=== PATIENT | male | born 1975 ===

== ENCOUNTER 2017-04-14 18:09 | Emergency (ER) | payer SELFPAY ==
[2017-04-14 18:16] VITALS: RESP 18
[2017-04-14 19:03] LABS: RBC URINE < 1 /hpf (0-3); URINE BILIRUBIN NEGATIVE (NEGATIVE); URINE BLOOD NEGATIVE (NEGATIVE); URINE COLOR Straw (YELLOW); URINE GLUCOSE (UA) 3+ mg/dL (Normal); URINE KETONE 1+ mg/dL (NEGATIVE); URINE LEUKOCYTE ESTERASE NEG Leu/uL (Negative); URINE PROTEIN NEGATIVE (NEGATIVE); URINE UROBILINOGEN NORMAL mg/dL (0.2-1.0); WBC URINE 1 /hpf (0-5)
[2017-04-14 19:05] LABS: CHLORIDE 98 mmol/L (98-107); POTASSIUM 3.9 mmol/L (3.6-5.2); SODIUM 136 mmol/L (132-148)
[2017-04-14] MEDS ORDERED: Sodium Chloride 0.9% 1,000 ML IV ONE ×2 (19:06→20:07)
--- NOTE | 2017-04-14 19:06 | C.PDOC ---
History Of Present Illness 41 yr old male presents to the ER with complaints of polyuria, polydipsia and polyphagia worsening for the past few weeks. Patient has family history of diabetes (mother and brother). Patient denies fever, chills, chest pain, SOB, nausea, vomiting, abdominal pain, weakness or numbness. Time Seen by Provider: 04/14/17 19:06 Chief Complaint (Nursing): Dizziness/Lightheaded History Per: Patient History/Exam Limitations: no limitations Onset/Duration Of Symptoms: Worse Since (past few weeks) Past Medical History Reviewed: Historical Data, Nursing Documentation, Vital Signs Vital Signs: Last Vital Signs Temp 98.4 F 04/14/17 18:14 Pulse 74 04/14/17 21:07 Resp 18 04/14/17 21:07 BP 106/61 04/14/17 21:07 Pulse Ox 100 04/14/17 21:07 - Medical History PMH: Diabetes Family History: States: Diabetes - Social History Hx Alcohol Use: Yes Hx Substance Use: No - Immunization History Hx Tetanus Toxoid Vaccination: No Hx Influenza Vaccination: No Hx Pneumococcal Vaccination: No Review Of Systems Except As Marked, All Systems Reviewed And Found Negative. Constitutional: Positive for: Other ((+) Polyuria. Polydipsia. Polyphagia.). Negative for: Fever, Chills Cardiovascular: Negative for: Chest Pain Respiratory: Negative for: Shortness of Breath Gastrointestinal: Negative for: Nausea, Vomiting, Abdominal Pain Neurological: Negative for: Weakness, Numbness Physical Exam - Physical Exam Appears: Non-toxic, No Acute Distress Skin: Warm, Dry, No Rash Head: Atraumatic, Normacephalic Oral Mucosa: Dry Chest: Symmetrical, No Tenderness Cardiovascular: No Murmur Respiratory: No Rales, No Rhonchi, No Wheezing Gastrointestinal/Abdominal: Soft, No Tenderness, No Guarding, No Rebound Extremity: Capillary Refill (<2), No Swelling Neurological/Psych: Oriented x3, Normal Speech Gait: Steady ED Course And Treatment - Laboratory Results Result Diagrams: 04/14/17 18:53 04/14/17 18:53 O2 Sat by Pulse Oximetry: 97 (RA ) Pulse Ox Interpretation: Normal Reevaluation Time: 21:41 Reassessment Condition: Improved Medical Decision Making Medical Decision Making: PLAN: * CXR * VBG * Ketone Serum * CBC * CMP * Sodium Chloride IV Upon provider reevaluation patient is feeling better, is medically stable, and requires no further treatment in the ED at this time. Patient will be discharged home with Rx for metformin . Counseling was provided and all questions were answered regarding diagnosis and need for follow up with the referred clinic. There is agreement to discharge plan. Return if symptoms persist or worsen. Disposition Counseled Patient/Family Regarding: Studies Performed, Diagnosis, Need For Followup, Rx Given - Disposition Referrals: [facility] [Outside] [facility] [Outside] Disposition: HOME/ ROUTINE Disposition Time: 19:06 Condition: FAIR Additional Instructions: Please return if symptoms recur. Do go to the clinic tomorrow 04/15/17 Prescriptions: metFORMIN [glucOPHAGE] 500 mg PO BID #30 tab Instructions: Diabetic Hyperglycemia (ED), Diabetes Mellitus Type 2 in Adults ( DC) Forms: [employer] ([place]an) - Clinical Impression Clinical Impression: New onset type 2 diabetes mellitus, Hyperglycemia - Scribe Statement The provider has reviewed the documentation as recorded by the Eder Metz Provider Attestation: All medical record entries made by the Eder were at my direction and personally dictated by me. I have reviewed the chart and agree that the record accurately reflects my personal performance of the history, physical exam, medical decision making, and the department course for this patient. I have also personally directed, reviewed, and agree with the discharge instructions and disposition.
[2017-04-14 19:07] LABS: CARBON DIOXIDE 24 mmol/L (22-30); GFR AFRICAN-AMERICAN > 60
[2017-04-14 19:08] LABS: ALB/GLOB RATIO 1.1 (1.0-2.1); ALKALINE PHOSPHATASE 163 U/L (38-126); ALT/SGPT 31 U/L (21-72); AST/SGOT 16 U/L (17-59); BLOOD UREA NITROGEN 16 mg/dL (9-20); CALCIUM 9.2 mg/dl (8.6-10.4); TOTAL PROTEIN 7.3 g/dL (6.3-8.3)
[2017-04-14 19:10] LABS: BASO % 0.5 % (0.0-2.0); EOS # 0.1 K/uL (0.0-0.7); EOS % 1.7 % (0.0-4.0); HEMATOCRIT 41.5 % (35.0-51.0); LYMPH # 1.9 K/uL (1.0-4.3); LYMPH % 33.6 % (20.0-40.0); MEAN CELL VOLUME 87.7 fL (80.0-94.0); MEAN CORPUSCULAR HEMOGLOBIN 30.3 pg (27.0-31.0); MEAN CORPUSCULAR HGB CONC 34.5 g/dL (33.0-37.0); MEAN PLATELET VOLUME 9.2 fL (7.2-11.7); MONO # 0.3 K/uL (0.0-0.8); MONO % 5.4 % (0.0-10.0); NRBC % 0.1 % (0.0-2.0); RED CELL DISTRIBUTION WIDTH 12.6 % (11.5-14.5); WHITE BLOOD COUNT 5.7 K/uL (4.8-10.8)
[2017-04-14 19:14] LABS: GLUCOSE,RANDOM 449 mg/dL (75-110)
[2017-04-14] MEDS ORDERED: Sodium Chloride 0.9% 1,000 ML ONE ×2 (19:19→20:10)
[2017-04-14 19:36] LABS: VENOUS BLOOD GAS BASE EXCESS 0.8 mmol/L (0.0-2.0); VENOUS BLOOD GAS PCO2 49 mmHg (40-60); VENOUS BLOOD PH 7.35 (7.32-7.43)
[2017-04-14] MEDS ORDERED: (Novolin R) Insulin Human Regular 100 units/ml vial IV ONE (20:07)
[2017-04-14] MEDS ORDERED: (Novolin R) Insulin Human Regular 100 units/ml vial ONE (20:10)
[2017-04-14 22:06] VITALS: BP 104/66; PULSE 71; TEMP 97.9; O2SAT 98
--- NOTE | 2017-04-15 10:11 | RAD ---
HISTORY: Diabetic COMPARISON: None available. TECHNIQUE: Chest, one view. FINDINGS: LUNGS: No focal consolidation. Please note that chest x-ray has limited sensitivity for the detection of pulmonary masses. PLEURA: No significant pleural effusion identified. No definite pneumothorax . CARDIOVASCULAR: The cardiomediastinal silhouette appears within normal limits of size. OSSEOUS STRUCTURES: No acute osseous abnormality identified. VISUALIZED UPPER ABDOMEN: Unremarkable. OTHER FINDINGS: None. IMPRESSION: No focal consolidation, significant pleural effusion, or definite pneumothorax identified.
== END 2017-04-14 22:06 | disposition home or self-care (01) ==
LOC: C.ER 18:09
DX: E11.65 Type 2 diabetes mellitus with hyperglycemia (principal)
CPT/HCPCS: 71010; 80053; 81001; 82009; 82803; 82948; 85025; 96361; 96374; 99285; J7040